=== PATIENT | female | born 1955 | race African-American/Black ===

== ENCOUNTER 2022-01-30 10:30 | Inpatient (IN) | payer OTHER ==
[~2022-01-30] VITALS: Ht 167.6 cm; Wt 63.5 kg
[~2022-01-30 10:30] MED LIST: HYDR12.529; SIMV-43; pro air
[2022-01-30 12:03] LABS: CHLORIDE 107 mEq/L (98-107)
[2022-01-30 12:38] LABS: BASOPHILS % 1.2 % (0.0-2.0); EOSINOPHILS % 1.8 % (0.0-5.0); HEMATOCRIT. 42.6 % (36.0-48.0); HEMOGLOBIN. 14.4 g/dL (12.0-16.0); LYMPHOCYTES % 45.2 % (20.0-50.0); MEAN CORPUSCULAR HEMOGLOBIN 32.2 pg (28.0-32.0); MEAN CORPUSCULAR VOLUME 95.5 fL (81.0-99.0); MEAN PLATELET VOLUME 9.1 fl (7.4-10.4); MONOCYTES % 8.4 % (2.0-8.0); NEUTROPHILS % 43.4 % (40.0-76.0); PLATELET 185 x1000/uL (130-400); RED BLOOD CELL COUNT 4.46 mill/uL (4.2-5.4)
[2022-01-30] MEDS ORDERED: ASPIRIN 81MG TABLET PO ONE (12:45)
[2022-01-30 12:49] LABS: CLARITY URINE CLEAR (CLEAR); COLOR URINE YELLOW (YELLOW); KETONES URINE NEGATIVE (NEGATIVE); LEUKOCYTE ESTERASE URINE NEGATIVE (NEGATIVE); NITRITE URINE NEGATIVE (NEGATIVE); OCCULT BLOOD URINE NEGATIVE (NEGATIVE); PROTEIN URINE NEGATIVE (NEGATIVE); SPECIFIC GRAVITY URINE 1.008 (1.005-1.030); UROBILINOGEN URINE 0.2 E.U./dL (0.2-1.0)
[2022-01-30] MEDS ORDERED: IPRATROPIUM/ALBUTEROL 0.5-3(2.5)MG/3ML NEB HHN PRN (14:30)
[2022-01-30] MEDS ORDERED: CLONIDINE 0.1MG TABLET PO PRN (14:30)
[2022-01-30] MEDS ORDERED: ONDANSETRON HCL 4MG/2ML INJ IV PRN (14:30)
[2022-01-30] MEDS ORDERED: DIPHENHYDRAMINE 50MG/ML VIAL IV PRN (14:30)
[2022-01-30] MEDS ORDERED: ACETAMINOPHEN 325MG TABLET PO PRN (14:30)
[2022-01-30] MEDS ORDERED: KCL 20MEQ/100ML PREMIX 100 ML IV NR (16:00)
[2022-01-30] MEDS ORDERED: ATOR40TA70 PO (17:03)
[2022-01-30] MEDS ORDERED: HYDR25TA PO (17:03)
[2022-01-30 17:06] VITALS: BP 110/79
[2022-01-30 18:00] VITALS: BP 110/71
[2022-01-30 20:00] VITALS: BP 121/59
[2022-01-30] MEDS ORDERED: ATORVASTATIN CALCIUM 10MG TABLET PO SCH (21:00)
[2022-01-30] MEDS: AMLODIPINE 2.5MG TABLET PO SCH (21:00)
[2022-01-30] MEDS: THEOPHYLLINE ANHYDROUS 80 MG/15 ML 120ML PO SCH (21:27)
[2022-01-30 22:00] VITALS: BP 113/38
[2022-01-31] VITALS (12 sets, daily range): BP systolic 96–120; BP diastolic 44–71
[2022-01-31] MEDS: ATROPINE SULFATE 1MG/ML VIAL IV PRN ×2 (01:04→22:15)
[2022-01-31] MEDS: THEOPHYLLINE ANHYDROUS 80 MG/15 ML 120ML PO SCH ×3 (05:52→23:06)
[2022-01-31 07:58] LABS: BASOPHILS % 1.1 % (0.0-2.0); EOSINOPHILS % 2.2 % (0.0-5.0); HEMATOCRIT. 41.6 % (36.0-48.0); LYMPHOCYTES % 53.4 % (20.0-50.0); MEAN CORPUSCULAR HEMOGLOBIN 31.7 pg (28.0-32.0); MEAN CORPUSCULAR VOLUME 94.3 fL (81.0-99.0); MONOCYTES % 8.4 % (2.0-8.0); NEUTROPHILS % 34.9 % (40.0-76.0); PLATELET 186 x1000/uL (130-400); RED BLOOD CELL COUNT 4.42 mill/uL (4.2-5.4); RED CELL DISTRIBUTION WIDTH 13.1 % (11.6-14.6)
[2022-01-31] MEDS: AMLODIPINE 2.5MG TABLET PO SCH ×3 (08:15→22:25)
[2022-01-31 08:27] LABS: CHLORIDE 103 mEq/L (98-107)
[2022-01-31] MEDS: ASPIRIN 81MG EC TABLET PO SCH (09:06)
[2022-01-31] MEDS: MAGNESIUM OXIDE 400MG TABLET PO SCH (14:08)
[2022-01-31 14:13] LABS: *AMPHETAMINES SCREEN URINE NEGATIVE (NEGATIVE); *BARBITURATES SCREEN URINE NEGATIVE (NEGATIVE); *BENZODIAZEPINES SCREEN URINE NEGATIVE (NEGATIVE); *COCAINE SCREEN URINE NEGATIVE (NEGATIVE); CANNABINOID URINE SCREEN NEGATIVE (NEGATIVE); METHADONE URINE SCREEN NEGATIVE (NEGATIVE); OPIATES URINE SCREEN NEGATIVE (NEGATIVE); PHENCYCLIDINE URINE SCREEN NEGATIVE (NEGATIVE)
[2022-01-31] MEDS ORDERED: MAGNESIUM 2 G PREMIX 50 ML IV NR (15:00)
[2022-01-31] MEDS ORDERED: POTASSIUM CHLORIDE 20MEQ TABLET SR PO NR (17:30)
[2022-01-31] MEDS: ATORVASTATIN CALCIUM 40MG TABLET PO SCH (21:22)
[2022-01-31] MEDS: CLOPIDOGREL 75MG TABLET PO SCH (21:22)
[2022-02-01] VITALS (17 sets, daily range): BP systolic 99–127; BP diastolic 31–72
[2022-02-01] MEDS: ATROPINE SULFATE 1MG/ML VIAL IV PRN (04:11)
[2022-02-01] MEDS: THEOPHYLLINE ANHYDROUS 80 MG/15 ML 120ML PO SCH ×4 (06:33→18:21)
[2022-02-01 07:05] LABS: BASOPHILS % 0.9 % (0.0-2.0); EOSINOPHILS % 2.7 % (0.0-5.0); HEMATOCRIT. 42.1 % (36.0-48.0); HEMOGLOBIN. 14.3 g/dL (12.0-16.0); LYMPHOCYTES % 45.1 % (20.0-50.0); MEAN CORPUSCULAR HEMOGLOBIN 31.6 pg (28.0-32.0); MEAN CORPUSCULAR VOLUME 92.8 fL (81.0-99.0); MONOCYTES % 9.1 % (2.0-8.0); NEUTROPHILS % 42.2 % (40.0-76.0); PLATELET 205 x1000/uL (130-400); RED BLOOD CELL COUNT 4.54 mill/uL (4.2-5.4); RED CELL DISTRIBUTION WIDTH 12.9 % (11.6-14.6)
[2022-02-01] MEDS: AMLODIPINE 2.5MG TABLET PO SCH ×2 (08:35→20:57)
[2022-02-01] MEDS: ASPIRIN 81MG EC TABLET PO SCH (08:36)
[2022-02-01] MEDS: MAGNESIUM OXIDE 400MG TABLET PO SCH (08:36)
[2022-02-01] MEDS: CLOPIDOGREL 75MG TABLET PO SCH (08:36)
[2022-02-01 08:38] LABS: CHLORIDE 105 mEq/L (98-107)
[2022-02-01] MEDS: ATORVASTATIN CALCIUM 40MG TABLET PO SCH (20:55)
[2022-02-02] VITALS (12 sets, daily range): BP systolic 98–129; BP diastolic 45–82
[2022-02-02] MEDS: THEOPHYLLINE ANHYDROUS 80 MG/15 ML 120ML PO SCH ×3 (00:48→12:00)
[2022-02-02] MEDS: CLOPIDOGREL 75MG TABLET PO SCH (08:35)
[2022-02-02] MEDS: MAGNESIUM OXIDE 400MG TABLET PO SCH (08:35)
[2022-02-02] MEDS: ASPIRIN 81MG EC TABLET PO SCH (08:35)
[2022-02-02] MEDS: AMLODIPINE 2.5MG TABLET PO SCH ×2 (08:37→20:55)
[2022-02-02] MEDS: APIXABAN 5 MG TABLET PO SCH (17:27)
[2022-02-02] MEDS: ATORVASTATIN CALCIUM 40MG TABLET PO SCH (20:55)
[2022-02-03] VITALS (9 sets, daily range): BP systolic 97–140; BP diastolic 39–79
[2022-02-03] MEDS: AMLODIPINE 2.5MG TABLET PO SCH (08:24)
[2022-02-03] MEDS: APIXABAN 5 MG TABLET PO SCH (08:24)
[2022-02-03] MEDS: MAGNESIUM OXIDE 400MG TABLET PO SCH (08:24)
[2022-02-03 10:52] LABS: BASOPHILS % 1.1 % (0.0-2.0); EOSINOPHILS % 2.6 % (0.0-5.0); HEMATOCRIT. 39.8 % (36.0-48.0); HEMOGLOBIN. 13.5 g/dL (12.0-16.0); LYMPHOCYTES % 39.8 % (20.0-50.0); MEAN CORPUSCULAR HEMOGLOBIN 31.7 pg (28.0-32.0); MEAN CORPUSCULAR VOLUME 93.6 fL (81.0-99.0); MONOCYTES % 8.5 % (2.0-8.0); PLATELET 177 x1000/uL (130-400); RED BLOOD CELL COUNT 4.26 mill/uL (4.2-5.4); RED CELL DISTRIBUTION WIDTH 13.1 % (11.6-14.6)
[2022-02-03 11:05] LABS: CHLORIDE 106 mEq/L (98-107)
[2022-02-03] MEDS ORDERED: NICOTINE 21MG PATCH TD SCH (12:45)
[2022-02-03] MEDS ORDERED: AMLO2.5T45 PO (12:53)
[2022-02-03] MEDS ORDERED: APIX5TAB PO (12:53)
[2022-02-04] MEDS ORDERED: AMLODIPINE 2.5MG TABLET PO SCH (09:00)
== END 2022-02-03 15:37 | disposition home or self-care (01) | DRG 64 ==
LOC: ER 10:30 → 5EST 14:14 → ENRESERV 15:40
PROVIDERS: ADMIT Internal Medicine; ATTEND Internal Medicine
DX: I63.9 Cerebral infarction, unspecified (principal); G92.8 Other toxic encephalopathy; G81.91 Hemiplegia, unspecified affecting right dominant side; I44.1 Atrioventricular block, second degree; I10 Essential (primary) hypertension; E78.5 Hyperlipidemia, unspecified; J44.9 Chronic obstructive pulmonary disease, unspecified; F17.210 Nicotine dependence, cigarettes, uncomplicated; E83.42 Hypomagnesemia; R00.1 Bradycardia, unspecified; R47.01 Aphasia; R26.81 Unsteadiness on feet; Z86.73 Personal history of transient ischemic attack (TIA), and cerebral infarction without residual deficits; Z79.899 Other long term (current) drug therapy; Z79.82 Long term (current) use of aspirin; R29.701 NIHSS score 1
CPT/HCPCS: 36415; 70544; 70551; 71045; 80048; 80053; 80061; 80305; 81003; 83036; 83735; 84443; 84484; 85025; 93005; 93306; 93880; 93970; 97162; 97166; 99291; J0461; J3475; J3480

== ENCOUNTER 2022-04-08 11:09 | Emergency (ER) | payer OTHER ==
[~2022-04-08] VITALS: Ht 165.1 cm; Wt 80.0 kg
[~2022-04-08 11:09] MED LIST changes: +AMLO2.5T45 PO; +APIX5TAB PO; +ATOR40TA70 PO; -HYDR12.529; -SIMV-43
[2022-04-08 11:37] VITALS: BP 120/62
[2022-04-08] MEDS ORDERED: ACETAMINOPHEN 325MG TABLET PO STA (15:24)
[2022-04-08] MEDS ORDERED: ACET-2708 PO (16:20)
[2022-04-08] MEDS ORDERED: HYDR453.3 TP (16:20)
== END 2022-04-08 16:50 | disposition home or self-care (01) ==
LOC: ER 11:09
DX: S80.862A Insect bite (nonvenomous), left lower leg, initial encounter (principal); R60.0 Localized edema; E78.00 Pure hypercholesterolemia, unspecified; I10 Essential (primary) hypertension; Z86.73 Personal history of transient ischemic attack (TIA), and cerebral infarction without residual deficits; W57.XXXA Bitten or stung by nonvenomous insect and other nonvenomous arthropods, initial encounter; Y93.89 Activity, other specified; Y92.018 Other place in single-family (private) house as the place of occurrence of the external cause
CPT/HCPCS: 73630; 99283

== ENCOUNTER 2024-04-27 12:37 | Emergency (ER) | payer OTHER ==
[~2024-04-27] VITALS: Ht 170.2 cm; Wt 69.0 kg
[~2024-04-27 12:37] MED LIST changes: +ACET-2708 PO; +HYDR453.3 TP
[2024-04-27 12:44] VITALS: BP 140/60; PULSE 67; RESP 16; TEMP 98; O2SAT 100
[2024-04-27] MEDS ORDERED: ERYT1OIN6 EACHEYE (15:35)
[2024-04-27] MEDS ORDERED: TOPUD MT (16:09)
[2024-04-27] MEDS: FLUORESCEIN SODIUM 1MG/STRIP BOTHEYE ONE (16:12)
[2024-04-27] MEDS: TETRACAINE 0.5% OPHTH DROPS 4ML BOTHEYE ONE (16:12)
== END 2024-04-27 16:13 | disposition home or self-care (01) ==
LOC: ER 14:27
DX: H57.11 Ocular pain, right eye (principal); E78.00 Pure hypercholesterolemia, unspecified; I10 Essential (primary) hypertension; Z86.73 Personal history of transient ischemic attack (TIA), and cerebral infarction without residual deficits; Z79.899 Other long term (current) drug therapy
CPT/HCPCS: 99281